=== PATIENT | female | born 1965 | race American Indian/Alaskan Native ===

== ENCOUNTER 2017-03-03 15:03 | Outpatient (CLI) | payer MEDICAID | END 2017-03-03 15:04 | disposition home or self-care (01) | LOC: LABHHL 15:03 | PROVIDERS: ATTEND Internal Medicine Gastroenterology | DX: Z12.11 Encounter for screening for malignant neoplasm of colon (principal) | CPT/HCPCS: 88305 ==

== ENCOUNTER 2020-11-13 10:46 | Outpatient (CLI) | payer OTHER | END 2020-11-13 10:47 | disposition home or self-care (01) | LOC: SPVWC 10:46 | PROVIDERS: ATTEND Family Medicine | DX: Z12.31 Encounter for screening mammogram for malignant neoplasm of breast (principal) | CPT/HCPCS: 77067 ==